=== PATIENT | female | born 1980 | race Caucasian/White ===

== ENCOUNTER 2017-06-18 06:39 | Day surgery (SDC) | payer OTHER ==
--- NOTE | 2017-06-17 15:32 | GHP ---
[f rep st] PREOP HISTORY AND PHYSICAL DATE OF ADMISSION: 06/18/2017 ADMITTING DIAGNOSIS: Incomplete . HISTORY OF PRESENT ILLNESS: Patient is a 36-year-old, 2, para 1-0-0-1 with LMP 04/19/17 at 5 2/7 weeks who presented on June 10 with complaints of brownish spotting for 5 days duration. She denies any cramping or pain at this time. She conceived by IUI at [facility] and had a positive home test on 05/20/17. Ultrasound was done showing a gestational sac with no embryo, no yolk sac consistent with a blighted ovum at 5 weeks, 2 days. Condolences were given to the patient. Discussed treatment options, including observation versus medical treatment with Cytotec versus surgical treatment with a D and C. The patient wanted to observe and see what her body does. The patient then presented to the office a week later, June 17 with complaints of moderate bright red vaginal bleeding for 24-48 hours, now has stopped. Denies any cramping. A pelvic ultrasound was done showing a thickened endometrial stripe at 20 mm, heterogeneous, with blood flow suspicious for retained products. Reviewed ultrasound with the patient and her and was concerned this was an incomplete AB and that she did not pass all products of . We discussed treatment options with the use of Cytotec versus surgical with suction D and C and benefits/risks of each. Patient does want to proceed with surgery at this time and wants it done as soon as possible so that she can "move on from this." Surgery is tentatively scheduled for 08 on June [address] Pope. PAST OBSTETRICAL HISTORY: Previous in 09/2015, a viable male infant, weighing 8 pounds 1 ounce. PAST GYNECOLOGICAL HISTORY: Age of menarche 10, cycles are irregular every 24- 28 days for 5-6 days. Last menstrual period 04/19/2017. Positive test 05/20/2017. PAST MEDICAL HISTORY: Hypothyroidism. PAST SURGICAL HISTORY: In 1997, she had a partial left salpingectomy done via laparotomy. CURRENT MEDICATIONS: Levothyroxine, vitamin. ALLERGIES: No known drug allergies. FAMILY HISTORY: Father had prostate cancer; maternal grandmother had lung cancer; and mother with breast cancer diagnosed at 58 years of age. REVIEW OF SYSTEMS: 10-point review systems is negative. Pertinent positives noted in HPI. SOCIAL HISTORY: Patient is . She lives with her and their son. 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 Denies any alcohol, tobacco, or illicit drug use. LABORATORY DATA: Patient is A positive, Antibody negative. PHYSICAL EXAMINATION: VITAL SIGNS: Stable. Patient is afebrile. GENERAL: Well-nourished well-developed female, alert, oriented x3, in no apparent distress. CARDIOVASCULAR: Regular rate and rhythm. LUNGS: Clear to auscultation bilaterally. ABDOMEN: Soft, nontender, and nondistended. PELVIC : Deferred. EXTREMITIES: Normal to inspection without calf tenderness or edema. ASSESSMENT/PLAN: Patient is a 36-year-old, G2, P1-0-0-1, with last menstrual period 04/19/2017, with an incomplete at 5 weeks. 1. Admit to Labor and Delivery for a suction dilation and curettage. 2. Dr. Pope to sign surgical consents at bedside. 4. 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 5. Sequential compression devices for deep venous thrombosis prophylaxis. /[id number]/MODL MTDD
[2017-06-18] MEDS ORDERED: LR 1,000 ML IV ONE (07:42)
[2017-06-18] MEDS ORDERED: DOXYCYCLINE HYCLATE 100 MG CAP/TAB PO ONE ×2 (07:42)
--- NOTE | 2017-06-18 07:47 | POSTOPPROG ---
Post Op Note Date of Operation: 06/18/17 Surgeon: Rita Poep [facility] Informatician: none Anesthesiologist: Stephen Shaikh Anesthesia: GET(General Endotracheal) Pre-op Diagnosis: Blighted ovum Post-op Diagnosis: same Procedure: Suction D&C Findings: POC Inf/Abcess present in the surg proc area at time of surgery?: No EBL: Minimal Complications: none Specimen(s): intrauterine products
[2017-06-18] MEDS ORDERED: MIDAZOLAM 2 MG/2 ML VIAL ONE (08:27)
--- NOTE | 2017-06-18 08:33 | PDANEPAE ---
ANE History of Present Illness Blighted ovum. ANE Past Medical History - Cardiovascular History Hx Hypertension: No Hx Arrhythmias: No Hx Chest Pain: No Hx Coronary Artery / Peripheral Vascular Disease: No Hx CHF / Valvular Disease: No Hx Palpitations: No - Pulmonary History Hx COPD: No Hx Asthma/Reactive Airway Disease: No Hx Recent Upper Respiratory Infection: No Hx Oxygen in Use at Home: No Hx Sleep Apnea: No - Endocrine History Hx Diabetes: No Hypothyroid: No Hyperthyroid: No Obesity: no - Chronic Pain History Chronic Pain: No - Surgical History Prior Surgeries: Prior laparoscopy with general anesthesia. ANE Review of Systems Review of systems is: negative Review of Systems: - Exercise capacity Exercise capacity: >=4 METS ANE Patient History - Allergies Allergies/Adverse Reactions: No Known Allergies Allergy (Unverified 06/18/17 07:41) - Home Medications Home Medications: Vit27&Calcium/Iron/FA [] 1 each PO DAILY 10/23/15 [Last Taken Unknown] - NPO status NPO Status: no food or drink >8 hours - Anes Hx Anes Hx: no prior problems - Smoking Hx Smoking Status: Never smoked Marijuana use: No - Alcohol Use Alcohol Use: Rarely - Family Anes Hx Family Anes Hx: neg - N/A ANE Labs/Vital Signs - Vital Signs Blood Pressure: 105/61 Respiratory Rate: 18 Height: 162.56 cm Weight: 83.915 kg ANE Physical Exam - Airway Neck exam: FROM Mallampati Score: Class 2 Mouth exam: normal dental/mouth exam - Pulmonary Pulmonary: no respiratory distress - Cardiovascular Cardiovascular: regular rate and rhythym - ASA Status ASA Status: I ANE Anesthesia Plan Anesthesia Plan: GA with mask
[2017-06-18] MEDS ORDERED: fentaNYL 100 MCG/2 ML INJ ONE (08:37)
[2017-06-18] MEDS ORDERED: PROPOFOL/EMULSION 500 MG/50 ML BOTTLE IV ONE (08:37)
[2017-06-18] MEDS ORDERED: DEXAMETHASONE 4 MG/ML VIAL ONE ×2 (09:39)
[2017-06-18] MEDS ORDERED: ONDANSETRON 4 MG/2 ML VIAL ONE (09:39)
[2017-06-18] MEDS ORDERED: KETOROLAC 30 MG/1 ML SDV ONE (09:39)
[2017-06-18] MEDS ORDERED: LIDOCAINE 2% 5 ML SDV ONE (09:39)
[2017-06-18] MEDS ORDERED: fentaNYL 100 MCG/2 ML INJ IVP PRN (09:44)
[2017-06-18] MEDS ORDERED: HYDROCODONE/APAP 5/325 TAB PO PRN (09:44)
[2017-06-18] MEDS ORDERED: ONDANSETRON 4 MG/2 ML VIAL IVP PRN (09:44)
[2017-06-18] MEDS ORDERED: NALOXONE HCL 0.4 MG/ML INJ IVP PRN (09:44)
[2017-06-18] MEDS ORDERED: ALBUTEROL 3 ML DEYVIAL IH PRN (09:44)
[2017-06-18] MEDS ORDERED: epHEDrine SULFATE 10 MG/ML SYR IVP PRN (09:44)
--- NOTE | 2017-06-18 09:44 | POSTANESTH ---
Post Anesthetic Evaluation Cardiovascular Status: Normal, Stable, Similar to Pre-Op Cond Respiratory Status: Normal, Stable, Similar to Pre-op Cond. Level of Consciousness/Mental Status: Can Participate in Eval, Alert and Oriented Pain Control: Adequate, Prn Tx Ordered Nausea/Vomiting Control: Adequate, Prn Tx Ordered Complications Possibly Related to Anesthesia: None Noted
[2017-06-18 11:24] VITALS: BP 109/63; RESP 13; TEMP 99.9; O2SAT 94
--- NOTE | 2017-06-18 17:17 | GOP ---
[f rep st] OPERATIVE REPORT DATE OF OPERATION: 06/18/2017 SURGEON: Rita Pope MD RN BEHAVIORAL HEALTH: None. ANESTHESIA: General anesthetic. ANESTHESIOLOGIST: Dr. Stephen Shaikh. PREOPERATIVE DIAGNOSIS: Blighted ovum. POSTOPERATIVE DIAGNOSIS: Blighted ovum. PROCEDURE PERFORMED: Suction dilatation and curettage. FINDINGS: Products of conception. ESTIMATED BLOOD LOSS: Less than 50. INDICATIONS: The patient was admitted to the hospital with a diagnosis of a blighted ovum. Patient is a 36-year-old , blighted ovum at approximately 5 weeks gestation, who arrived with bleeding and cramping and complete Ab. No known drug allergies. DESCRIPTION OF PROCEDURE: The patient was taken to the operating room, where general anesthetic was placed. The patient was prepped and draped in the normal sterile fashion. Patient was placed in the [facility]. On bimanual examination, the cervix was closed and uterus appeared to be small, retroverted , approximally 7 cm in size. A speculum was then placed intravaginally, and the anterior lip of the cervix was grasped with a tenaculum and brought down. The uterus was sounded to 7 cm, and the cervix was then dilated to 8 mm. An 8 mm suction curette was then placed within the intrauterine cavity, and blood and products were then removed. After removal of the suction, curettage of the uterine cavity was placed and good cry was noted on all 4 sides. All instruments were then removed from the vagina. Approximately 400 cc of urine were then removed. The patient tolerated the procedure well. [facility] and went to recovery room in stable condition. /[id number]/MODL MTDD
== END 2017-06-18 12:00 | disposition home or self-care (01) ==
LOC: FOBOP 06:39
PROVIDERS: ATTEND Obstetrics & Gynecology
PROC: 10D17ZZ Extraction of Products of Conception, Retained, Via Natural or Artificial Opening (ICD-10-PCS; principal; 2017-06-18)
DX: O02.0 Blighted ovum and nonhydatidiform mole (principal); E03.9 Hypothyroidism, unspecified; Z80.3 Family history of malignant neoplasm of breast; Z80.42 Family history of malignant neoplasm of prostate
CPT/HCPCS: J1100; J1885; J2250; J2405; J2704; J3010; J7613

== ENCOUNTER → 2018-02-14 | Outpatient (CLI) | payer OTHER | LOC: FIMAGING 10:18 | PROVIDERS: ATTEND Obstetrics & Gynecology | DX: O09.522 Supervision of elderly multigravida, second trimester (principal); O43.122 Velamentous insertion of umbilical cord, second trimester; Z3A.19 19 weeks gestation of pregnancy; Z98.891 History of uterine scar from previous surgery ==

== ENCOUNTER → 2018-03-14 | Outpatient (CLI) | payer OTHER | LOC: FIMAGING 12:17 | PROVIDERS: ATTEND Obstetrics & Gynecology | DX: Z36.89 Encounter for other specified antenatal screening (principal); O09.522 Supervision of elderly multigravida, second trimester; Z3A.23 23 weeks gestation of pregnancy; O99.282 Endocrine, nutritional and metabolic diseases complicating pregnancy, second trimester; E03.9 Hypothyroidism, unspecified; O40.2XX0 Polyhydramnios, second trimester, not applicable or unspecified; Z68.33 Body mass index [BMI] 33.0-33.9, adult ==

== ENCOUNTER 2018-06-30 05:33 | Inpatient (IN) | payer OTHER ==
--- NOTE | 2018-06-09 17:15 | GHP ---
DATE OF PLANNED PROCEDURE: 06/30/2018 INDICATIONS FOR SURGERY: Repeat low transverse section. HISTORY OF PRESENT ILLNESS: Patient is a 37-year-old, 3, para 1-0-1-1, who will be 39 weeks gestation. She has history of a previous low transverse section for bradycardia and a rrest of descent. Patient had progressed to completely dilated, however, the baby's head was still h igh, she had intermittent non-reassuring heart tones and labor and when she got to complete, th e baby had an episode of bradycardia. Since she was remote from delivery, decision was made to proceed with a primary low transverse section. Patient had been going back and forth betwe en plans of attempting a vaginal after section. A calculator was used to pre dict successive which was 41%. This did not take into account the estimated weight is in the 94th percentile, which decreased the chance of success even further. The patient is electing to proceed with a repeat low transverse section. Her plans a vasectomy, so she will no t have a bilateral salpingectomy. Risks and benefits have been extensively reviewed with the patient and the patient has been properly consented. The patient's estimated date of confinement is 07/07/2018, dated by last menstrual period of 10/01/19 18. Intrauterine insemination on 10/13/2017, consistent with a 1st-trimester ultrasound. The patien t's initially was di/di twins which had spontaneous reduction of a twin at 10 weeks. Remai nder of the has been uncomplicated. She has had increased growth ultrasounds because of ma rginal cord insertion and large for gestational age baby, but remainder of the has been unc omplicated. MEDICAL HISTORY: Significant for hypothyroidism, increased BMI. MEDICATIONS: Levothyroxine 125 mcg, vitamins, DHA, and vitamin D. SURGICAL HISTORY: section in 2015, D and C in 2018, left salpingectomy due to torsion at ag e 18. ALLERGIES: No known drug allergies. SOCIAL HISTORY: Patient is . She denies tobacco, alcohol, or drug use. FAMILY MEDICAL HISTORY: Noncontributory. 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 Periods every 28 days, lasting 6 days. She is a 3, para 1 -0-1-1. In 09/2015, she had a primary low transverse section at 41 weeks' gestation of an 8 pounds 1 ounce male infant due to intolerance of labor. At complete, there was an episode of bradycardia when patient was completely dilated but the head was still very high. In 05/2017, she had a blighted ovum after an IUI . She had a D and C. current has been descri bed above, conceived by IUI which had viable di/di twins, which spontaneously reduced to a woodard . The patient denies any history of any abnormal Pap smears or sexually transmitted disease s. PHYSICAL EXAMINATION: VITAL SIGNS: Stable. GENERAL APPEARANCE: Alert and oriented x3. MUSCULOSKEL ETAL: Grossly intact. PSYCH: Grossly intact. NEUROMUSCULAR: Grossly intact. HEART: Rate is regu lar. LUNGS: Clear to auscultation bilaterally. ABDOMEN: Obese and gravid, nondistended, nontender . EXTREMITIES: No calf tenderness or edema. PELVIC: Exam is deferred. LABS: Blood type A positive. Antibody screen negative. Rubella immune. GBS is still pend ing. HBsAg negative. HIV negative. Her 50 g glucose was 80. She declined genetic testing. REVIEW OF SYSTEMS: 10-point review of systems is negative with the exception of the above-mentioned pertinent positives, no loss of fluid. She denies any headache or changes in vision or nausea and vo miting. ASSESSMENT AND PLAN: A 37-year-old 3, para 1-0-1-1, who has a history of a previous low doyle sverse section and a low prediction of successful vaginal after section. She is planning a repeat low transverse section. Partner will have a vasectomy and patient alan l not have a salpingectomy. Risks have been extensively reviewed with the patient, and the patient h as been properly consented thank you end dictation. /[id number]/MODL
[2018-06-30] MEDS ORDERED: LR 1,000 ML IV SCH (05:54)
[2018-06-30] MEDS ORDERED: ceFAZolin 2 GM/DEXTROSE 100 ML IV ONE (05:54)
[2018-06-30] MEDS ORDERED: LR 500 ML IV ONE (05:54)
[2018-06-30] MEDS ORDERED: CITRIC ACID/SODIUM CITRATE 30 ML UDCUP PO ONE (05:54)
[2018-06-30 06:23] LABS: PLATELET COUNT 167 10^3/uL (150-400)
[2018-06-30] MEDS ORDERED: OXYTOCIN/RINGERS LACTATE 20 UNIT/1,000 ML BAG IV ONE (07:20)
[2018-06-30] MEDS ORDERED: BUPIVACAINE/DEXTROSE 7.5MG/ML 2 ML SPINAL AMP SP ONE (07:22)
[2018-06-30] MEDS ORDERED: morphINE PF 10 MG/10 ML INJ ONE (07:25)
--- NOTE | 2018-06-30 07:30 | PREANESOB ---
Obstetric Pre-Anesthesia Info - General Info Proposed Procedure: : 3 Para: 1 - Info Status: Full Term - Labor Status Section History: Repeat Indications for Current Section: Elective/Repeat Anesthesia Allergies/Adverse Reactions: Allergy/AdvReac Type Severity Reaction Status Date / Time No Known Allergies Allergy Unverified 06/18/17 07:41 Home Medications: Medication Instructions Recorded Vit27&Calcium/Iron/FA 1 each PO DAILY 10/23/15 [] Iron Polysacch/Iron Heme Polyp 28 mg PO DAILY #60 tab 10/27/15 [Bifera] Levothyroxine [Synthroid 75 mcg 75 mcg PO DAILY06 #0 tab 10/27/15 (*)] Sennosides/Docusate Sodium 1 - 2 tab PO BID #60 tab 10/27/15 [Senokot-S] Hydrocodone/APAP 5/325 [Guy 1 - 2 tab PO Q4 PRN #30 tab 06/18/17 5/325 (*)] Ibuprofen [Motrin (*)] 600 mg PO Q6 PRN #30 tab 06/18/17 Visit Medications: Generic Name Dose Route Start Last Admin Trade Name Freq PRN Reason Stop Dose Admin Lactated Ringer's 1,000 mls @ 125 mls/hr 06/30/18 05:54 06/30/18 06:30 Lr IV 07/01/18 05:53 1,000 mls CONT ELYSIA Administration Discontinued Medications Generic Name Dose Route Start Last Admin Trade Name Freq PRN Reason Stop Dose Admin Bupivacaine HCl/Dextrose Confirm 06/30/18 07:22 Marcaine Spinal Administered 06/30/18 07:23 Dose 2 ml SP .STK-MED ONE Citric Acid/Sodium Citrate 30 ml 06/30/18 05:54 06/30/18 07:22 Bicitra PO 06/30/18 05:55 30 ml ONCALL ONE Administration Cefazolin Sodium/Dextrose 100 mls @ 200 mls/hr 06/30/18 05:54 06/30/18 07:21 Ancef IV 06/30/18 06:23 100 mls ONCALL ONE Administration Protocol Lactated Ringer's 500 mls @ 0 mls/hr 06/30/18 05:54 Lr IV 06/30/18 05:55 ONCE ONE As Directed Morphine Sulfate Confirm 06/30/18 07:25 Morphine Pf 10 Mg/10 Ml Administered 06/30/18 07:26 Dose 10 mg .ROUTE .STK-MED ONE Oxytocin/Lactated Ringer's Confirm 06/30/18 07:20 Pitocin 20 Units/Lr (Premix) Administered 06/30/18 07:21 Dose 20 unit IV .STK-MED ONE - Anesthesia History Response to Local Anesthetics: Normal Anesthesia & Operative History: No Prior Problems - Vital Signs Latest Vital Signs (Nursing): Temp Pulse Resp BP Pulse Ox 36.9 C 85 16 122/66 H 96 06/30/18 07:26 06/30/18 07:26 06/30/18 07:26 06/30/18 07:26 06/30/18 07:26 Height/Weight (Nursing): Height 162.56 cm Weight 111.13 kg - Focused Exam Neck exam: FROM Mallampati Score: Class 2 Mouth exam: normal dental/mouth exam Pulmonary: no respiratory distress Cardiovascular: regular rate and rhythym Labs: 06/30/18 06:15 Patient ABO/Rh A POSITIVE 06/30/18 06:15 - Plan Consent Signed and on Chart: Yes Patient/Guardian Understands and Agrees to Plan: Yes
[2018-06-30] MEDS ORDERED: METHYLERGONOVINE MAL 0.2 MG/ML INJ ONE ×2 (08:19→08:20)
[2018-06-30] MEDS ORDERED: HYDROmorphONE/DILAUDID 1 MG/ML INJ IVP PRN (08:53)
[2018-06-30] MEDS ORDERED: PHENYLEPHRINE HCL 100 MCG/ML SYR IVP PRN (08:53)
[2018-06-30] MEDS ORDERED: fentaNYL 100 MCG/2 ML INJ IVP PRN (08:53)
[2018-06-30] MEDS ORDERED: LABETALOL HCL 5 MG/ML 20 ML MDV IVP PRN (08:53)
[2018-06-30] MEDS ORDERED: MEPERIDINE 25 MG/0.5 ML AMP IVP PRN (08:53)
[2018-06-30] MEDS ORDERED: NALOXONE HCL 0.4 MG/ML INJ IVP PRN ×2 (08:53→08:54)
[2018-06-30] MEDS ORDERED: METOCLOPRAMIDE 10 MG/2 ML VIAL IVP PRN (08:53)
--- NOTE | 2018-06-30 09:07 | OBDEL ---
Info Type: Repeat Presentation at Delivery: Vertex L&D Analgesia/Anesthesia Type: Spinal Intrapartum Medications: Generic Name Dose Route Start Last Admin Trade Name Freq PRN Reason Stop Dose Admin Lactated Ringer's 1,000 mls @ 125 mls/hr 06/30/18 05:54 06/30/18 06:30 Lr IV 07/01/18 05:53 1,000 mls CONT ELYSIA Administration Discontinued Medications Generic Name Dose Route Start Last Admin Trade Name Freq PRN Reason Stop Dose Admin Citric Acid/Sodium Citrate 30 ml 06/30/18 05:54 06/30/18 07:22 Bicitra PO 06/30/18 05:55 30 ml ONCALL ONE Administration Cefazolin Sodium/Dextrose 100 mls @ 200 mls/hr 06/30/18 05:54 06/30/18 07:21 Ancef IV 06/30/18 06:23 100 mls ONCALL ONE Administration Protocol Indications for Delivery: Elective Operative Report - Delivery Pre-op Diagnoses: IUP at 39 weeks, history of prior c section delines trial of labor, suspected macrosomia Post-op Diagnoses: same as preop plus occiput posterior History of Prior Section: Yes Number of Prior Sections: 1 Indications for Prior Section: Arrest of Descent, Non-reas. Status Indications for Current Section: Elective/Repeat Procedure: Scheduled, Low Transverse Surgeon: Mere Morales Diorama Model Maker: Suzanne Stewart Complications: Other (Specify) (post atony) Specimen(s)/Path: Placenta (post atonry - placenta difficulty to remove) EBL: 1000 Data TAMIKA: 07/07/18 Gestational Age: 39 week(s) and 0 day(s) Rosa Delivery Date: 06/30/18 Delivery Time: 08:13 Sex of Infant: Female Score (1 Min): 8 Score (5 Min): 9
[2018-06-30] MEDS ORDERED: BISACODYL 10 MG SUPP PR PRN (09:12)
[2018-06-30] MEDS ORDERED: LACTULOSE 20 GM/30 ML UDCUP PO PRN (09:12)
[2018-06-30] MEDS ORDERED: MAGNESIUM HYDROXIDE 30 ML UDCUP PO PRN (09:12)
[2018-06-30] MEDS ORDERED: PROMETHAZINE HCL 25 MG/ML INJ IVP PRN (09:12)
--- NOTE | 2018-06-30 09:25 | POSTANESTH ---
Post Anesthetic Evaluation Cardiovascular Status: Normal, Stable Respiratory Status: Normal, Stable Level of Consciousness/Mental Status: Can Participate in Eval Pain Control: Adequate, Prn Tx Ordered Nausea/Vomiting Control: Adequate, Prn Tx Ordered Complications Possibly Related to Anesthesia: None Noted
[2018-06-30] MEDS: KETOROLAC 30 MG/1 ML SDV IVP SCH ×3 (09:52→21:56)
[2018-06-30] MEDS: IBUPROFEN 600 MG TAB PO SCH ×3 (10:40→21:57)
[2018-06-30] MEDS: ACETAMINOPHEN 325 MG TAB PO SCH ×2 (14:48→20:40)
[2018-06-30] MEDS: SENNOSIDES/DOCUSATE SODIUM TAB PO SCH (20:40)
--- NOTE | 2018-06-30 23:19 | OBPP ---
Progress Note Assessment/Plan: Assessment: POD 0 - s/p RCS - scheduled PP atony - methergine in OR admit hct was 35 Plan: routine care, iron 06/30/18 23:14 Subjective/ Course: 06/30/18 23:19 pt currently sleeping but per RN has been doing very well today and BF well. no pain issues - no exam done - bld well controlled per RN today 06/30/18 23:20 Objective: 06/30/18 06:15 Patient ABO/Rh A POSITIVE 06/30/18 06:15 Temp Pulse Resp BP Pulse Ox 37.1 C 79 16 100/66 93 06/30/18 20:30 06/30/18 20:30 06/30/18 20:30 06/30/18 20:30 06/30/18 20:30
[2018-07-01] MEDS: ACETAMINOPHEN 325 MG TAB PO SCH ×5 (02:27→21:39)
[2018-07-01] MEDS: IBUPROFEN 600 MG TAB PO SCH ×4 (04:06→22:14)
[2018-07-01] MEDS: KETOROLAC 30 MG/1 ML SDV IVP SCH (05:11)
[2018-07-01] MEDS: LEVOTHYROXINE 125 MCG TAB PO SCH (06:29)
[2018-07-01] MEDS: SIMETHICONE 80 MG TAB CHEW PO PRN ×3 (09:44→21:40)
[2018-07-01] MEDS: SENNOSIDES/DOCUSATE SODIUM TAB PO SCH ×2 (10:51→21:39)
[2018-07-01] MEDS: FERRO-SEQUELS 65 MG TAB.ER PO SCH (10:52)
[2018-07-01] MEDS: oxyCODONE IR 5 MG TAB PO PRN ×3 (12:27→21:40)
--- NOTE | 2018-07-01 13:19 | POSTANESTH ---
Post Anesthetic Evaluation Cardiovascular Status: Normal, Stable Respiratory Status: Normal, Stable Level of Consciousness/Mental Status: Can Participate in Eval, Alert and Oriented Pain Control: Adequate, Prn Tx Ordered Nausea/Vomiting Control: Adequate, Prn Tx Ordered Complications Possibly Related to Anesthesia: None Noted (Duramorph post-op, pain well controlled, spinal block resolved, no complications)
--- NOTE | 2018-07-01 14:39 | OBPP ---
Progress Note Assessment/Plan: Assessment: 37 y/o P2 s/p repeat LTCS POD #1 Anemia Plan: Routine post op/pp care Daily iron 07/01/18 15:33 07/01/18 15:35 Subjective/ Course: 06/30/18 23:19 pt currently sleeping but per RN has been doing very well today and BF well. no pain issues - no exam done - bld well controlled per RN today 06/30/18 23:20 07/01/18 15:36 Doing well. Feeling good - bleeding wnl, toleration activity, regular diet. Up walking in [place] this afternoon and tolerated well. Pain well controlled with oral pain meds. going well with support from . Objective: 07/01/18 04:15 Patient ABO/Rh A POSITIVE 06/30/18 06:15 Temp Pulse Resp BP Pulse Ox 36.8 C 93 14 97/56 L 92 07/01/18 08:00 07/01/18 08:00 07/01/18 08:00 07/01/18 08:00 07/01/18 08:00 Uterine Position/Fundal Height: At Umbilicus Uterine Tone: Firm Physical Exam - Physical Exam EENT: PERRL/EOMI, normal ENT inspection Neck: non-tender, full range of motion Respiratory: normal breath sounds Cardiac/Chest: regular rate, rhythm Abdomen: hypoactive bowel sounds, incision (bob intact - incision clean and well approximated) Extremities: normal range of motion Back: Normal inspection Skin: normal color Neuro/Psych: no motor/sensory deficits, alert, normal mood/affect, oriented x 3
[2018-07-02] MEDS: oxyCODONE IR 5 MG TAB PO PRN ×4 (04:02→20:17)
[2018-07-02] MEDS: ACETAMINOPHEN 325 MG TAB PO SCH ×4 (04:02→22:50)
[2018-07-02] MEDS: IBUPROFEN 600 MG TAB PO SCH ×4 (06:16→18:21)
[2018-07-02] MEDS: LEVOTHYROXINE 125 MCG TAB PO SCH (06:16)
[2018-07-02] MEDS: SENNOSIDES/DOCUSATE SODIUM TAB PO SCH ×2 (08:04→22:50)
[2018-07-02] MEDS: FERRO-SEQUELS 65 MG TAB.ER PO SCH (08:04)
[2018-07-02] MEDS: POLYETHYLENE GLYCOL 3350 17 GM PKT PO PRN ×2 (14:37→20:25)
--- NOTE | 2018-07-02 14:54 | OBPP ---
Progress Note Assessment/Plan: Assessment: 37 y/o POD #2 s/p Rpt LTCS doing well Plan: Continue Ibuprofen, Tylenol and Oxy prn. Bowel protocol today to encourage BM. support. Anticipate d/c home tomorrow. 07/02/18 14:53 Subjective/ Course: 06/30/18 23:19 pt currently sleeping but per RN has been doing very well today and BF well. no pain issues - no exam done - bld well controlled per RN today 06/30/18 23:20 07/01/18 15:36 Doing well. Feeling good - bleeding wnl, toleration activity, regular diet. Up walking in [place] this afternoon and tolerated well. Pain well controlled with oral pain meds. going well with support from . 07/02/18 14:51 Pt is doing well today. She has good pain control with po meds Ibuprofen, Tylenol and is taking Oxycodone 2 x/ day. Breast feeding is going well and baby is doing well, she feels her milk is coming in now. She is ambulating and voiding and has min lochia. She has not had a BM yet. They would like to d.c home tomorrow. Objective: 07/01/18 04:15 Patient ABO/Rh A POSITIVE 06/30/18 06:15 Temp Pulse Resp BP Pulse Ox 36.9 C 75 16 121/68 H 95 07/02/18 08:31 07/02/18 08:31 07/02/18 08:31 07/02/18 08:31 07/02/18 08:31 Uterine Position/Fundal Height: Umbilicus -2 Uterine Tone: Firm Physical Exam - Physical Exam General Appearance: alert, no apparent distress Neck: non-tender, full range of motion, supple Respiratory: chest non-tender, lungs clear, normal breath sounds Cardiac/Chest: regular rate, rhythm Abdomen: normal bowel sounds, incision (c/d/i) Extremities: swelling (1+), Delbert's sign (neg)
[2018-07-03] MEDS: oxyCODONE IR 5 MG TAB PO PRN ×2 (00:40→10:02)
[2018-07-03] MEDS: IBUPROFEN 600 MG TAB PO SCH ×4 (00:41→12:11)
[2018-07-03] MEDS: LEVOTHYROXINE 125 MCG TAB PO SCH (06:25)
[2018-07-03] MEDS: FERRO-SEQUELS 65 MG TAB.ER PO SCH (07:39)
[2018-07-03] MEDS: SENNOSIDES/DOCUSATE SODIUM TAB PO SCH (08:42)
[2018-07-03 08:47] VITALS: BP 117/77
--- NOTE | 2018-07-03 09:43 | OBPP ---
Progress Note Assessment/Plan: Assessment:37 yo POD#3 s/p R-C/S doing well. Plan:DC home, std postop C/S instructions reviewed. Marleny Ruiz MD, [facility]OG [facility] 07/03/18 09:39 Subjective/ Course: 06/30/18 23:19 pt currently sleeping but per RN has been doing very well today and BF well. no pain issues - no exam done - bld well controlled per RN today 06/30/18 23:20 07/01/18 15:36 Doing well. Feeling good - bleeding wnl, toleration activity, regular diet. Up walking in [place] this afternoon and tolerated well. Pain well controlled with oral pain meds. going well with support from . 07/02/18 14:51 Pt is doing well today. She has good pain control with po meds Ibuprofen, Tylenol and is taking Oxycodone 2 x/ day. Breast feeding is going well and baby is doing well, she feels her milk is coming in now. She is ambulating and voiding and has min lochia. She has not had a BM yet. They would like to d.c home tomorrow. 07/03/18 09:41 Pt doing well. Ambulating, voiding, js reg diet without difficulty. going well. Mod lochia. Objective: 07/01/18 04:15 Patient ABO/Rh A POSITIVE 06/30/18 06:15 Temp Pulse Resp BP Pulse Ox 36.6 C 78 16 117/77 96 07/03/18 08:47 07/03/18 08:47 07/03/18 08:47 07/03/18 08:47 07/03/18 08:47 gen = pleasant, NAD CV - RRR chest - CTAB abd - soft, + BS, fundus firm at u-2 inc - C/D/I ext - no calf tenderness B Uterine Position/Fundal Height: Umbilicus -2 Uterine Tone: Firm
--- NOTE | 2018-07-03 09:43 | OBGCSDC ---
General Delivery Information - General Info : 3 Para: 2 Type: Repeat L&D Analgesia/Anesthesia Type: Spinal Admission Date: 06/30/18 Labs: Patient ABO/Rh A POSITIVE 06/30/18 06:15 Hct 30.7 % (38.0-47.0) L 07/01/18 04:15 - Hospital Course : 06/30/18 23:19 pt currently sleeping but per RN has been doing very well today and BF well. no pain issues - no exam done - bld well controlled per RN today 06/30/18 23:20 07/01/18 15:36 Doing well. Feeling good - bleeding wnl, toleration activity, regular diet. Up walking in [place] this afternoon and tolerated well. Pain well controlled with oral pain meds. going well with support from . 07/02/18 14:51 Pt is doing well today. She has good pain control with po meds Ibuprofen, Tylenol and is taking Oxycodone 2 x/ day. Breast feeding is going well and baby is doing well, she feels her milk is coming in now. She is ambulating and voiding and has min lochia. She has not had a BM yet. They would like to d.c home tomorrow. 07/03/18 09:41 Pt doing well. Ambulating, voiding, js reg diet without difficulty. going well. Mod lochia. - Delivery Providers Surgeon: Mere Morales Dehorner: Suzanne Stewart - Delivery Number of Prior Sections: 1 Indications for Current Section: Elective/Repeat Surgical Procedures: Scheduled, Low Transverse Intra-op Complications: Other (Specify) (post atony) EBL: 1000 [place] Data TAMIKA: 07/07/18 Gestational Age: 39 week(s) and 3 day(s) Rosa Delivery Date: 06/30/18 Delivery Time: 08:13 Sex of : Female [place] Weight (gm): 3835 kg Score (1 Min): 8 Score (5 Min): 9 Discharge Information - Discharge Information Prescriptions: oxyCODONE IR [Oxycodone Ir (*)] 5 - 10 mg PO Q4HRS PRN #30 tab PRN Reason: Pain, Severe Able To Take Po Ibuprofen [Motrin (*)] 600 mg PO Q6H #60 tab Iron/Vit C/Docusate [Paulina-Sequels 65 mg (*)] 1 each PO DAILY #30 tab.er Instruction/Follow Up: See Instruction Sheet, Two Weeks, Six Weeks
--- NOTE | 2018-07-05 17:16 | GOP ---
[f rep st] OPERATIVE REPORT DATE OF OPERATION: 06/30/2018 SURGEON: Mere Morales DO ELECTRICIAN RECTIFIER MAINTENANCE: ZAYRA Saunders. PREOPERATIVE DIAGNOSIS: Intrauterine at 39 weeks' gestation, history of previous low trans verse section x1, low probability of successful vaginal after section, desire s repeat section, suspected macrosomia as well. POSTOPERATIVE DIAGNOSIS: Intrauterine at 39 weeks' gestation, history of previous low doyle sverse section x1, low probability of successful vaginal after section, adolfo es repeat section, suspected macrosomia as well, occiput posterior, placenta difficult to re move, atony, bedside curettage. PROCEDURE PERFORMED: Repeat low transverse section. certified registered dental assistant FINDINGS: ESTIMATED BLOOD LOSS: 1000 cc. INDICATIONS: Patient is a 37-year-old 3, para 1-0-1-1, who was 39 weeks gestation. She has a history of a previous low transverse section for arrest of descent and intolerance o f labor. She had initially hoped to have a vaginal after section. However, her predi cted success rate for a vaginal after section with algorithm was 41 percentile, not in cluding the fact that we thought this baby was large for gestational age. The patient's wa s complicated by initially a twin with spontaneous reduction to a woodard. It has been o therwise uncomplicated. The patient elected to proceed with a repeat low transverse section . She declines tubal ligation at this time. Risks and benefits have been extensively reviewed with the patient. Patient has been properly consented. DESCRIPTION OF PROCEDURE: Patient was taken to the operating room with intravenous fluids in place. She was then seated on the operating room table where spinal anesthesia was obtained. She was then repositioned into the dorsal supine position with a leftward tilt. Venodynes were placed on her lowe r extremities. A Bryan catheter was then placed. She was then prepped and draped in the normal ster ile fashion. Anesthesia was assessed and found to be adequate. A Pfannenstiel skin incision was the n made 2 fingerbreadths above the pubic symphysis. The incision was then carried through to the unde rlying layer of fascia with the Bovie. The fascia was then nicked in the midline and the fascial inc ision was extended laterally. The superior aspect of the fascial incision was then grasped with the Kochers, tented up, and the underlying rectus muscle dissected off bluntly with the Bovie. Attention was then turned to the inferior aspect of the fascial incision, which in a similar fashion was grasp ed with the Kochers, tented up, and the underlying rectus muscle dissected off bluntly with the Bovie . The rectus muscle was then in the midline. The peritoneum was then identified, tented u p, and entered sharply with the Metzenbaum scissors. The incision was extended superiorly and inferi guilherme with excellent visualization of the bladder. The bladder blade was then inserted. The vesicout erine peritoneum was then identified, tented up, and entered sharply with the Metzenbaum scissors. T he incision was extended laterally and a bladder flap was created digitally. The bladder blade was t hen reinserted. The uterus was then incised in a low transverse fashion with a scalpel. The uterine incision was extended laterally with the bandage scissors. Membranes were artificially ruptured. A large amount of clear fluid was noted. The 's head was noted to be high within the pelvis and not well engaged within the pelvis. It was noted to be in the occiput posterior presentation. The baby was delivered without difficulty through the incision. The cord was clamped x2 and cut after 1 minute of delayed cord clamping, and the infant was handed off to awaiting nurse astride r. Intact placenta with three-vessel cord was delivered. There was a piece of retained placenta lef t on the inside, which was removed. A banjo curette was then used circumferentially until a gritty t exture was noted. No additional products of conception were noted and none were visualized. The reynold dder blade was then reinserted. The hysterotomy was then closed with 0 Vicryl in a running locked fa shion. A second 0 Vicryl stitch was used to imbricate the uterine incision. Hemostasis was assured. Ovaries, uterus, and tubes were unremarkable. The uterus was then returned to the patient's abdome n. Gutters were cleared of all clots and debris. Hysterotomy remained hemostatic. Peritoneum was reapproximated with 3-0 Vicryl in a running fashion. Rectus muscle was reapproximated with 2-0 Vicryl in a running fashion. The fascia was closed with 0 Vicryl in a running fashion. Blaise tissue was reapproximated with 3-0 Vicryl in a running fashion . The skin was then closed with bob. Sponge, lap, and needle count were correct x2. Patient wa s transported to the recovery room in stable condition. /[id number]/MODL
== END 2018-07-03 13:34 | disposition home or self-care (01) | DRG 788 ==
LOC: FLD 05:33 → FOB 11:30
PROVIDERS: ADMIT Obstetrics & Gynecology; ATTEND Obstetrics & Gynecology
PROC: 10D00Z1 Extraction of Products of Conception, Low, Open Approach (ICD-10-PCS; principal; 2018-06-30)
DX: O34.211 Maternal care for low transverse scar from previous cesarean delivery (principal); Z37.0 Single live birth; Z3A.39 39 weeks gestation of pregnancy
CPT/HCPCS: J0690; J1200; J1885; J2210; J2274; J2590

== ENCOUNTER → 2018-07-06 | Outpatient (CLI) | payer OTHER | LOC: FLACT 13:34 ==